=== PATIENT | male | born 1950 | race African-American/Black ===

== ENCOUNTER 2021-06-04 10:36 | Inpatient (IN) | payer MEDICARE, MEDICAID ==
[~2021-06-04] VITALS: Ht 182.9 cm; Wt 78.6 kg
[2021-06-04] MEDS ORDERED: METHYLPREDNISOLONE SOD SUCC 125 MG/2 ML VIAL IV STA (10:54)
[2021-06-04] MEDS ORDERED: ALBUTEROL (0.083%) 2.5MG/3ML NEB HHN STA (10:54)
[2021-06-04] MEDS ORDERED: IPRATROPIUM BROMIDE (0.02%) 0.5MG/2.5ML NEB HHN STA (10:54)
[2021-06-04 11:39] LABS: BASOPHILS % 0.4 % (0.0-2.0); EOSINOPHILS % 0.2 % (0.0-5.0); HEMATOCRIT. 48.3 % (42.0-52.0); HEMOGLOBIN. 16.1 g/dL (14.0-18.0); LYMPHOCYTES % 17.9 % (20.0-50.0); MEAN CORPUSCULAR HEMOGLOBIN 30.6 pg (28.0-32.0); MEAN CORPUSCULAR VOLUME 91.5 fL (80.0-94.0); MEAN PLATELET VOLUME 8.3 fl (7.4-10.4); MONOCYTES % 7.6 % (2.0-8.0); NEUTROPHILS % 73.9 % (40.0-76.0); PLATELET 191 x1000/uL (130-400); RED BLOOD CELL COUNT 5.27 mill/uL (4.7-6.1); RED CELL DISTRIBUTION WIDTH 14.2 % (11.6-14.6)
[2021-06-04 11:52] LABS: CHLORIDE 109 mEq/L (98-107)
[2021-06-04 11:55] LABS: ETHANOL BLOOD < 10 mg/dL
[2021-06-04] MEDS ORDERED: ENOXAPARIN 100MG/ML SYR SUBCUT ONE (12:30)
[2021-06-04] MEDS ORDERED: ASPIRIN 81MG TABLET PO ONE (12:30)
[2021-06-04] MEDS ORDERED: FUROSEMIDE 40MG/4ML VIAL IV ONE (12:30)
[2021-06-04 14:35] LABS: *AMPHETAMINES SCREEN URINE NEGATIVE (NEGATIVE); *BARBITURATES SCREEN URINE NEGATIVE (NEGATIVE); *BENZODIAZEPINES SCREEN URINE NEGATIVE (NEGATIVE)
[2021-06-04 14:36] LABS: *COCAINE SCREEN URINE PRESUMTIVE POSITIVE (NEGATIVE); CANNABINOID URINE SCREEN NEGATIVE (NEGATIVE); METHADONE URINE SCREEN NEGATIVE (NEGATIVE); OPIATES URINE SCREEN NEGATIVE (NEGATIVE); PHENCYCLIDINE URINE SCREEN NEGATIVE (NEGATIVE)
[2021-06-04] MEDS ORDERED: MAGNESIUM/ALUMINUM HYDROXIDE/SIMETHICONE 30ML UDC PO PRN (19:30)
[2021-06-04] MEDS ORDERED: ZOLPIDEM TARTRATE 5MG TABLET PO PRN (19:30)
[2021-06-04] MEDS ORDERED: DIPHENHYDRAMINE 50MG/ML VIAL IV PRN (19:30)
[2021-06-04] MEDS ORDERED: ONDANSETRON HCL 4MG/2ML INJ IV PRN (19:30)
[2021-06-04] MEDS ORDERED: IPRATROPIUM/ALBUTEROL 0.5-3(2.5)MG/3ML NEB HHN PRN (19:30)
[2021-06-04] MEDS ORDERED: ACETAMINOPHEN 325MG TABLET PO PRN ×2 (19:30)
[2021-06-04] MEDS ORDERED: POTASSIUM CHLORIDE 20MEQ TABLET SR PO NR (19:45)
[2021-06-04] MEDS: FAMOTIDINE 20MG TABLET PO SCH (20:49)
[2021-06-04] MEDS: LEVOFLOXACIN 500MG PREMIX 100 ML IV SCH (20:49)
[2021-06-04] MEDS: GUAIFENESIN 600MG ER TABLET PO SCH (20:56)
[2021-06-04] MEDS: SODIUM CHLORIDE 0.9% INJ 3ML FLUSH IVF SCH (21:23)
[2021-06-04] MEDS: METHYLPREDNISOLONE SOD SUCC 125 MG/2 ML VIAL IV SCH (21:23)
[2021-06-04 23:07] VITALS: BP 148/114
[2021-06-04 23:15] VITALS: BP 148/114
[2021-06-04] MEDS ORDERED: TRAM50TA PO (23:35)
[2021-06-04] MEDS ORDERED: TAMS-11 PO (23:35)
[2021-06-04] MEDS ORDERED: FURO20TA4 PO (23:35)
[2021-06-04] MEDS ORDERED: OMEP40CA20 PO (23:35)
[2021-06-04] MEDS ORDERED: LANS30CA55 PO (23:35)
[2021-06-04] MEDS ORDERED: ALBU6.7H9 INH (23:35)
[2021-06-04] MEDS ORDERED: LISI10TA26 PO (23:35)
[2021-06-04] MEDS ORDERED: IBUP-2030 PO (23:35)
[2021-06-04] MEDS: CLONIDINE 0.1MG TABLET PO PRN (23:54)
[2021-06-05] VITALS: BP 165/119
[2021-06-05 04:00] VITALS: BP 138/99
[2021-06-05] MEDS: SODIUM CHLORIDE 0.9% INJ 3ML FLUSH IVF SCH ×3 (05:21→21:30)
[2021-06-05] MEDS: METHYLPREDNISOLONE SOD SUCC 125 MG/2 ML VIAL IV SCH ×2 (05:21→14:03)
[2021-06-05 07:19] LABS: CHLORIDE 107 mEq/L (98-107)
[2021-06-05 08:00] VITALS: BP 141/109
[2021-06-05] MEDS: LISINOPRIL 10MG TABLET PO SCH ×2 (09:30→21:30)
[2021-06-05] MEDS: FAMOTIDINE 20MG TABLET PO SCH ×2 (09:30→21:30)
[2021-06-05] MEDS: ENOXAPARIN 40MG/0.4ML SYR SUBCUT SCH (09:30)
[2021-06-05] MEDS: GUAIFENESIN 600MG ER TABLET PO SCH (09:38)
[2021-06-05 12:00] VITALS: BP 144/96
[2021-06-05] MEDS: IPRATROPIUM/ALBUTEROL 0.5-3(2.5)MG/3ML NEB HHN SCH ×2 (14:12→21:02)
[2021-06-05 16:00] VITALS: BP 150/109
[2021-06-05] MEDS: CLONIDINE 0.1MG TABLET PO PRN (17:39)
[2021-06-05 20:00] VITALS: BP 134/88
[2021-06-05] MEDS: METHYLPREDNISOLONE SOD SUCC 40 MG/ML VIAL IV SCH (21:30)
[2021-06-05] MEDS: LEVOFLOXACIN 500MG PREMIX 100 ML IV SCH (21:44)
[2021-06-06] VITALS: BP 142/90
[2021-06-06] MEDS: GUAIFENESIN 600MG ER TABLET PO SCH ×3 (00:16→21:11)
[2021-06-06] MEDS: IPRATROPIUM/ALBUTEROL 0.5-3(2.5)MG/3ML NEB HHN SCH ×4 (02:00→19:55)
[2021-06-06 04:00] VITALS: BP 119/80
[2021-06-06] MEDS: SODIUM CHLORIDE 0.9% INJ 3ML FLUSH IVF SCH ×3 (06:01→21:12)
[2021-06-06] MEDS: METHYLPREDNISOLONE SOD SUCC 40 MG/ML VIAL IV SCH ×3 (06:01→21:12)
[2021-06-06] MEDS: FAMOTIDINE 20MG TABLET PO SCH ×2 (08:21→21:11)
[2021-06-06] MEDS: ENOXAPARIN 40MG/0.4ML SYR SUBCUT SCH (08:21)
[2021-06-06] MEDS: LISINOPRIL 10MG TABLET PO SCH ×2 (08:21→21:12)
[2021-06-06] MEDS: FUROSEMIDE 40MG/4ML VIAL IVP SCH (15:04)
[2021-06-06 16:00] VITALS: BP 130/89
[2021-06-06 20:00] VITALS: BP 115/79
[2021-06-06] MEDS: LEVOFLOXACIN 500MG PREMIX 100 ML IV SCH (20:53)
[2021-06-07] VITALS: BP 142/99
[2021-06-07 04:00] VITALS: BP 134/85
[2021-06-07] MEDS: METHYLPREDNISOLONE SOD SUCC 40 MG/ML VIAL IV SCH (05:25)
[2021-06-07] MEDS: SODIUM CHLORIDE 0.9% INJ 3ML FLUSH IVF SCH (05:25)
[2021-06-07] MEDS: IPRATROPIUM/ALBUTEROL 0.5-3(2.5)MG/3ML NEB HHN SCH (08:44)
[2021-06-07] MEDS: ENOXAPARIN 40MG/0.4ML SYR SUBCUT SCH (09:11)
[2021-06-07] MEDS: GUAIFENESIN 600MG ER TABLET PO SCH (09:11)
[2021-06-07] MEDS: FUROSEMIDE 40MG/4ML VIAL IVP SCH (09:11)
[2021-06-07] MEDS: LISINOPRIL 10MG TABLET PO SCH (09:11)
[2021-06-07] MEDS: FAMOTIDINE 20MG TABLET PO SCH (09:11)
[2021-06-07 12:17] VITALS: BP 141/92
[2021-06-07] MEDS ORDERED: LEVOFLOXACIN 500MG TABLET PO SCH (20:00)
== END 2021-06-07 12:37 | disposition home or self-care (01) | DRG 816 ==
LOC: ER 10:54 → MICUSO 15:13 → EDBEDREQTM 15:17 → EDBEDREQ 15:17 → 7EST 21:35
PROVIDERS: ADMIT Internal Medicine; ATTEND Internal Medicine
DX: T40.5X1A Poisoning by cocaine, accidental (unintentional), initial encounter (principal); J96.01 Acute respiratory failure with hypoxia; I21.4 Non-ST elevation (NSTEMI) myocardial infarction; E44.0 Moderate protein-calorie malnutrition; J44.1 Chronic obstructive pulmonary disease with (acute) exacerbation; I27.20 Pulmonary hypertension, unspecified; I50.23 Acute on chronic systolic (congestive) heart failure; R74.01 Elevation of levels of liver transaminase levels; K21.9 Gastro-esophageal reflux disease without esophagitis; I11.0 Hypertensive heart disease with heart failure; F14.10 Cocaine abuse, uncomplicated; Z72.0 Tobacco use; Z99.81 Dependence on supplemental oxygen; Y92.89 Other specified places as the place of occurrence of the external cause; Z68.23 Body mass index [BMI] 23.0-23.9, adult
CPT/HCPCS: 36415; 71045; 80053; 80305; 80320; 83880; 84484; 85025; 93005; 93306; 94640; 99291; J1650; J1940; J1956; J2920; J2930; J7040; G0480